=== PATIENT | female | born 1990 | race Caucasian/White ===

== ENCOUNTER 2020-09-11 11:45 | Emergency (ER) | payer BC, OTHER ==
[~2020-09-11] VITALS: Ht 154.9 cm; Wt 75.1 kg
[~2020-09-11 11:45] MED LIST: DOCU-109 PO; FERR325T14 PO; IBUP-1007 PO; PREN1TAB51 PO
[2020-09-11 12:01] VITALS: BP 124/74
--- NOTE | 2020-09-11 12:58 | PHYS DOC ---
Past Medical History Past Surgical History: No Surgical History Smoking Status: Current Every Day Smoker Additional Information: 0.25 PPD Alcohol Use: None General Adult EDM: Chief Complaint: VAGINAL BLEEDING HPI: HPI: Patient is a 29 year old female who presents with she was at work and felt something wet in her underwear and she went to check and she had a large blood clot she had blood through her pants. She states that she then put a panty liner on and when she got here to be in the cup she again started bleeding. She states is like a normal period type bleeding for her. She states she has slight cramping in her low mid abdomen that is a 2 out of 10. This is her third baby for her. She states she is had no complications in the past. She states she is approximately 12 weeks along and she has not seen a OB. She states she has been trying to find an OB doctor that we will see her in person and not Skype. She states her only other history is smoking, seasonal allergies and 2 uncomplicated pregnancies with vaginal deliveries. Patient denies any surgeries. Review of Systems: Review of Systems: Constitutional: Denies fever or chills. [] Eyes: Denies change in visual acuity. [] HENT: Denies nasal congestion or sore throat. [] Respiratory: Denies cough or shortness of breath. [] Cardiovascular: Denies chest pain or edema. [] GI: + Cramping abdominal pain, denies nausea, vomiting, bloody stools or diarrhea. [] : Denies dysuria. + Vaginal bleeding [] Musculoskeletal: Denies back pain or joint pain. [] Integument: Denies rash. [] Neurologic: Denies headache, focal weakness or sensory changes. [] Endocrine: Denies polyuria or polydipsia. [] Lymphatic: Denies swollen glands. [] Psychiatric: Denies depression or anxiety. [] Heart Score: C/O Chest Pain: No Risk Factors: Risk Factors: DM, Current or recent (<one month) smoker, HTN, HLP, family history of CAD, obesity. Risk Scores: Score 0 - 3: 2.5% MACE over next 6 weeks - Discharge Home Score 4 - 6: 20.3% MACE over next 6 weeks - Admit for Clinical Observation Score 7 - 10: 72.7% MACE over next 6 weeks - Early Invasive Strategies Allergies: Allergies: Allergies Coded Allergies Type Severity Reaction Last Updated Verified Penicillins Allergy Severe Hives 03/24/13 Yes Physical Exam: PE: Constitutional: Well developed, well nourished, no acute distress, non-toxic appearance. [] HENT: Normocephalic, atraumatic, bilateral external ears normal, oropharynx moist, no oral exudates, nose normal. [] Eyes: PERRLA, EOMI, conjunctiva normal, no discharge. [] Neck: Normal range of motion, no tenderness, supple, no stridor. [] Cardiovascular:Heart rate regular rhythm, no murmur [] Lungs & Thorax: Bilateral breath sounds clear to auscultation [] Abdomen: Bowel sounds normal, soft, low mid pressure tenderness, no masses, no pulsatile masses. [] Skin: Warm, dry, no erythema, no rash. [] Back: No tenderness, no CVA tenderness. [] Extremities: No tenderness, no cyanosis, no clubbing, ROM intact, no edema. [] Neurologic: Alert and oriented X 3, normal motor function, normal sensory function, no focal deficits noted. [] Psychologic: Affect normal, judgement normal, mood normal. [] Current Patient Data: Labs: Laboratory Tests Test 09/11/20 12:08 POC Urine HCG, Qualitative Hcg positive (Negative) Vital Signs: Vital Signs Date Time Temp Pulse Resp B/P (MAP) Pulse Ox O2 Delivery O2 Flow Rate FiO2 09/11/20 12:01 98.9 77 17 124/74 (82) 100 Room Air 98.9 EKG: EKG: [] Radiology/Procedures: Radiology/Procedures: [] Impression: [facility] [address] [place], [place] [id number] IMAGING REPORT Signed PATIENT: MARY PATTON ACCOUNT: [id number] : 1990 LOCATION: ER AGE: 29 SEX: F EXAM STATUS: REG ER ORD. PHYSICIAN: RUTH AGUIRRE APRN REASON: 12 weeks and bleeding/TECH NOTIFIED PROCEDURE: OB < 14 WKS US OB <14 WKS +TV 09/11/2020 2:04 PM INDICATION: 12 weeks and bleeding COMPARISON: None available. TECHNIQUE: Sonographic evaluation of the pelvis was performed for evaluation. FINDINGS: Uterus measures 15.4 x 10.7 x 8.5 cm. Cervical length measures 5 cm. There is placenta previa. No subchorionic hemorrhage or placental abruption identified. Amniotic fluid is normal. Gestational sac is visualized with crown-rump length measuring 5.5 cm compatible gestational age of 12 weeks 1 day. heart tones measure 158 bpm. Estimated sonographic EDC 03/25/2021. Ovaries are not visualized. No significant pelvic free fluid. Urinary bladder is within normal limits given degree of distention. IMPRESSION: Single viable intrauterine gestation is identified with heart tones measuring 158 bpm with estimated gestational age of 12 weeks 1 day. Placenta previa is visualized. Attention on anatomy scan is recommended to assess for interval change. Electronically signed by: Benitez Paul MD (09/11/2020 2:51 PM) [id number] DICTATED and SIGNED BY: BENITEZ PAUL MD DATE: 09/11/20 [id number] 0 Course & Med Decision Making: Course & Med Decision Making Pertinent Labs and Imaging studies reviewed. (See chart for details) See HPI. Alert and oriented x4. Ambulatory with steady gait. Skin pink warm and dry. Vital signs within normal limits. She is afebrile. She denies any urinary symptoms or concern for STDs. Abdomen is soft and nontender but there is pressure with palpation to the low mid abdomen. Pelvic Exam: Line Tender present Abdomen: Nontender External Genitalia: Normal Skin Speculum: Normal vaginal mucosa, bloody cervical discharge Bimanual: No adnexal masses or tenderness, No CMT [] Dragon Disclaimer: Najma Disclaimer: This electronic medical record was generated, in whole or in part, using a voice recognition dictation system. Departure Departure Impression: Primary Impression: Vaginal bleeding in patient after first trimester with placenta previa Disposition: 01 HOME / SELF CARE / HOMELESS Condition: STABLE Referrals: FIONA HAYNES MD (PCP) GUZMAN PORTILLO MD Patient Instructions: - Placenta Previa Additional Instructions: Follow-up with an OB doctor as soon as possible. If you start having severe pain and a large amount of bleeding and going through more than 1 pad an hour you need to return to the emergency room. Drink plenty of fluids. RUTH AGUIRRE FOUNTAIN OPERATOR Sep 11, 2020 12:58
[2020-09-11 13:12] LABS: BILIRUBIN,URINE NEGATIVE (NEG); CLARITY,URINE CLEAR; COLOR,URINE YELLOW; NITRITE,URINE NEGATIVE (NEG); PROTEIN,URINE NEGATIVE (NEG-TRACE); UROBILINOGEN,URINE 0.2 mg/dL (0.2 mg/dL)
[2020-09-11 13:24] LABS: BACTERIA,URINE FEW /HPF (0-FEW); WBC,URINE 0 /HPF (0-4)
[2020-09-11 13:35] LABS: BASO % 0 % (0-3); EOS # 0.3 x10^3/uL (0.0-0.7); EOS % 4 % (0-3); HEMATOCRIT 36.7 % (36.0-47.0); LYMPH # 1.7 x10^3/uL (1.0-4.8); LYMPH % 22 % (24-48); MEAN CORPUSCULAR HEMOGLOBIN 32 pg (25-35); MEAN CORPUSCULAR HGB CONC 35 g/dL (31-37); MEAN CORPUSCULAR VOLUME 91 fL (79-100); MONO # 0.5 x10^3/uL (0.0-1.1); MONO % 6 % (0-9); NEUT # 5.3 x10^3/uL (1.8-7.7); NEUT % 68 % (31-73); PLATELET COUNT 250 x10^3/uL (140-400); RED BLOOD COUNT 4.05 x10^6/uL (3.50-5.40); RED CELL DISTRIBUTION WIDTH 12.8 % (11.5-14.5); WHITE BLOOD COUNT 7.8 x10^3/uL (4.0-11.0)
[2020-09-11 13:44] LABS: CALCIUM 8.6 mg/dL (8.5-10.1); CREATININE 0.6 mg/dL (0.6-1.0); GFR 118.2; POTASSIUM 3.5 mmol/L (3.5-5.1)
[2020-09-11 13:50] LABS: ALBUMIN/GLOBULIN RATIO 0.9 (1.0-1.7); TOTAL BILIRUBIN 0.3 mg/dL (0.2-1.0); TOTAL PROTEIN 6.4 g/dL (6.4-8.2)
--- NOTE | 2020-09-11 14:53 | RAD ---
US OB <14 WKS +TV 09/11/2020 2:04 PM INDICATION: 12 weeks and bleeding COMPARISON: None available. TECHNIQUE: Sonographic evaluation of the pelvis was performed for evaluation. FINDINGS: Uterus measures 15.4 x 10.7 x 8.5 cm. Cervical length measures 5 cm. There is placenta previa. No sub chorionic hemorrhage or placental abruption identified. Amniotic fluid is normal. Gestational sac is visualized with crown-rump length measuring 5.5 cm compatible gestational age of 12 weeks 1 day. Feta l heart tones measure 158 bpm. Estimated sonographic EDC 03/25/2021. Ovaries are not visualized. No significant pelvic free fluid. Urinary bladder is within normal limits given degree of distention. IMPRESSION: Single viable intrauterine gestation is identified with heart tones measuring 158 bpm with jm mated gestational age of 12 weeks 1 day. Placenta previa is visualized. Attention on anatomy scan is recommended to assess for interval change . Electronically signed by: Samantha Jenkins MD (09/11/2020 2:51 PM) [id number]
[2020-09-13 18:12] LABS: GC PROBE Negative (Negative)
== END 2020-09-11 15:20 | disposition home or self-care (01) ==
LOC: ER 11:45
DX: O44.11 Complete placenta previa with hemorrhage, first trimester (principal); O99.331 Smoking (tobacco) complicating pregnancy, first trimester; Z3A.12 12 weeks gestation of pregnancy
CPT/HCPCS: 36415; 76801; 80053; 81001; 81025; 84702; 85025; 86850; 86900; 86901; 87491; 87591; 99284; Q0111

== ENCOUNTER 2020-10-04 17:57 | Emergency (ER) | payer BC ==
[~2020-10-04] VITALS: Ht 154.9 cm; Wt 77.0 kg
--- NOTE | 2020-10-04 20:40 | PHYS DOC ---
Past Medical History Past Surgical History: No Surgical History Smoking Status: Current Every Day Smoker Alcohol Use: None General Adult EDM: Chief Complaint: VAGINAL BLEEDING HPI: HPI: Patient is a 30 year old female at approximately 15 weeks gestational age who presents with vaginal bleeding. Was seen on 09/11 for the same complaint and had an ultrasound showing an intrauterine of 12w1d gestational age and placenta previa. She has had a follow-up with Dr. Johnson of our obstetrics group since then. Yesterday started having bleeding again as well as lower abdominal cramping. States that the bleeding is mixed blood clots, dark blood, and bright red blood. She is soaking through more than 2 pads an hour. Review of Systems: Review of Systems: Constitutional: Denies fever or chills. [] Eyes: Denies change in visual acuity. [] HENT: Denies nasal congestion or sore throat. [] Respiratory: Denies cough or shortness of breath. [] Cardiovascular: Denies chest pain or edema. [] GI: No nausea, vomiting, bloody stools or diarrhea. [] : + Vaginal bleeding, uterine cramping. [] Musculoskeletal: Denies back pain or joint pain. [] Integument: Denies rash. [] Neurologic: Denies headache, focal weakness or sensory changes. [] Endocrine: Denies polyuria or polydipsia. [] Lymphatic: Denies swollen glands. [] Psychiatric: Denies depression or anxiety. [] Heart Score: C/O Chest Pain: No Risk Factors: Risk Factors: DM, Current or recent (<one month) smoker, HTN, HLP, family history of CAD, obesity. Risk Scores: Score 0 - 3: 2.5% MACE over next 6 weeks - Discharge Home Score 4 - 6: 20.3% MACE over next 6 weeks - Admit for Clinical Observation Score 7 - 10: 72.7% MACE over next 6 weeks - Early Invasive Strategies Allergies: Allergies: Allergies Coded Allergies Type Severity Reaction Last Updated Verified Penicillins Allergy Severe Hives 03/24/13 Yes Physical Exam: PE: Constitutional: Well developed, well nourished, no acute distress, non-toxic appearance. [] HENT: Normocephalic, atraumatic, bilateral external ears normal, oropharynx moist, no oral exudates, nose normal. [] Eyes: PERRLA, EOMI, conjunctiva normal, no discharge. [] Neck: Normal range of motion, no tenderness, supple, no stridor. [] Cardiovascular:Heart rate regular rhythm, no murmur [] Lungs & Thorax: Bilateral breath sounds clear to auscultation [] Abdomen: mild tenderness over gravid uterus : multiple large blood clots passed on speculum exam, digital exam not done due to known placenta previa, but cervix visually appeared closed. [] Skin: Warm, dry, no erythema, no rash. [] Back: No tenderness, no CVA tenderness. [] Extremities: No tenderness, no cyanosis, no clubbing, ROM intact, no edema. [] Neurologic: Alert and oriented X 3, normal motor function, normal sensory function, no focal deficits noted. [] Psychologic: Affect normal, judgement normal, mood normal. [] Current Patient Data: Labs: Laboratory Tests Test 10/04/20 20:34 POC Urine HCG, Qualitative Hcg positive (Negative) Vital Signs: Vital Signs Date Time Temp Pulse Resp B/P (MAP) Pulse Ox O2 Delivery O2 Flow Rate FiO2 10/04/20 20:03 98.7 87 119/66 (83) 96 98.7 10/04/20 18:20 20 Room Air EKG: EKG: [] Radiology/Procedures: Radiology/Procedures: OB US[] Impression: [facility] [address] [place] [address] IMAGING REPORT Signed PATIENT: MARY PATTON ACCOUNT: [id number] : 1990 LOCATION: ER AGE: 30 SEX: F EXAM STATUS: REG ER ORD. PHYSICIAN: LENCHO FAIRBANKS MD REASON: vaginal bleeding, hx placenta previa PROCEDURE: OB LIMITED OB ultrasound limited HISTORY: and vaginal bleeding Sonographic examination appearance was performed by transabdominal technique. Multiple static images were obtained. COMPARISON: September 12, 2011 The uterus measures 13 cm x 8.6 cm x 7.0 cm. There is no gestational sac seen. The endometrium appears somewhat thickened and complex. The ovaries appear normal normal blood flow. Right ovary measures 2.9 x 2.0 x 1.9 cm per the left ovary measures 2.7 x 2.2 x 1.8 cm. IMPRESSION: Thickened heterogeneous endometrium. No evidence of . Findings suggest complete miscarriage. Electronically signed by: Pricilla Wilson III, MD (10/04/2020 9:40 PM) [facility] DICTATED and SIGNED BY: PRICILLA WILSON III, MD DATE: 10/04/20 [id number] 0 Course & Med Decision Making: Course & Med Decision Making Pertinent Labs and Imaging studies reviewed. (See chart for details) Patient a 30-year-old female G3, P2 at approximately 15 weeks gestational age with history of placenta previa documented on 09/11 transvaginal ultrasound who presents with vaginal bleeding and lower abdominal cramping. On arrival is hemodynamically stable. We will check CBC for signs of anemia, type/screen to determine Rh status, and perform pelvic examination to determine the amount of bleeding present, and OB ultrasound to check previa and for well-being. 2041 Pelvic showed many large clots (no obvious parts) and some continued bleeding. Cervix visually appeared closed, but digital exam was not done due to placenta previa history. Beta Hcg is 844 from 82,951 on 09/11 and US showed an empty uterus -- all consistent with completed miscarriage. Blood type: B+. No need for rhogam. Hgb 13.7 as compared to 13.0 on 09/11. Vitals remain stable and her bleeding has slowed significantly. She has an appt with Dr. Johnson in the next two weeks that I encouraged her to keep. If she has return brisk bleeding she will return to the ED for reevaluation, otherwise will follow up with Dr. Johnson. [address] Disclaimer: Najma Disclaimer: This electronic medical record was generated, in whole or in part, using a voice recognition dictation system. Departure Departure Impression: Primary Impression: Complete miscarriage Disposition: HOME / SELF CARE / HOMELESS Condition: STABLE Referrals: EGOVANI BERNARDO MD (PCP) GUZMAN JOHNSON MD Please keep your follow-up appoint with Dr. Johnson. If you do have continued bleeding please call their office for evaluation. Patient Instructions: Miscarriage Additional Instructions: It appears you have had a miscarriage. We are very slow to get you this news. Please follow-up with your DATA PROCESSING MECHANIC, Dr. Johnson as scheduled. If you have ongoing bleeding please call his office to see if you can move up this appointment. If you have return of severe bleeding, fever/chills, lower abdominal pain, or other new/concerning symptoms please return to the emergency department for reevaluation. LENCHO FAIRBANKS MD Oct 04, 2020 20:40
[2020-10-04 20:45] LABS: BILIRUBIN,URINE NEGATIVE (NEG); CLARITY,URINE CLEAR; COLOR,URINE YELLOW; NITRITE,URINE NEGATIVE (NEG); PH,URINE 6.5 (<5.0-8.0); PROTEIN,URINE NEGATIVE (NEG-TRACE); UROBILINOGEN,URINE 0.2 mg/dL (0.2 mg/dL)
[2020-10-04 20:50] LABS: BACTERIA,URINE FEW /HPF (0-FEW); WBC,URINE OCC /HPF (0-4)
[2020-10-04] MEDS ORDERED: ACETAMINOPHEN 500 MG TABLET PO ONE (21:15)
[2020-10-04 21:39] LABS: BASO # 0.1 x10^3/uL (0.0-0.2); BASO % 1 % (0-3); EOS # 0.4 x10^3/uL (0.0-0.7); EOS % 4 % (0-3); HEMATOCRIT 39.8 % (36.0-47.0); HEMOGLOBIN 13.7 g/dL (12.0-15.5); LYMPH # 2.3 x10^3/uL (1.0-4.8); LYMPH % 25 % (24-48); MEAN CORPUSCULAR HEMOGLOBIN 32 pg (25-35); MEAN CORPUSCULAR HGB CONC 34 g/dL (31-37); MEAN CORPUSCULAR VOLUME 92 fL (79-100); MONO # 0.5 x10^3/uL (0.0-1.1); MONO % 6 % (0-9); NEUT # 6.1 x10^3/uL (1.8-7.7); NEUT % 65 % (31-73); PLATELET COUNT 271 x10^3/uL (140-400); RED BLOOD COUNT 4.31 x10^6/uL (3.50-5.40); RED CELL DISTRIBUTION WIDTH 13.2 % (11.5-14.5); WHITE BLOOD COUNT 9.3 x10^3/uL (4.0-11.0)
--- NOTE | 2020-10-04 21:42 | RAD ---
OB ultrasound limited HISTORY: and vaginal bleeding Sonographic examination appearance was performed by transabdominal technique. Multiple static images were obtained. COMPARISON: September 12, 2011 The uterus measures 13 cm x 8.6 cm x 7.0 cm. There is no gestational sac seen. The endometrium appear s somewhat thickened and complex. The ovaries appear normal normal blood flow. Right ovary measures 2.9 x 2.0 x 1.9 cm per the left ova ry measures 2.7 x 2.2 x 1.8 cm. IMPRESSION: Thickened heterogeneous endometrium. No evidence of . Findings suggest complete miscarriage. Electronically signed by: Wyatt Sood III, MD (10/04/2020 9:40 PM) [facility]
[2020-10-04 21:55] LABS: CALCIUM 8.6 mg/dL (8.5-10.1); CREATININE 0.8 mg/dL (0.6-1.0); GFR 84.2; POTASSIUM 3.5 mmol/L (3.5-5.1)
[2020-10-04 22:32] VITALS: BP 113/68
[2020-10-08] MEDS ORDERED: OXYC1TAB15 PO (12:42)
[2020-10-08] MEDS ORDERED: IBUP-1060 PO (12:42)
[2020-10-08] MEDS ORDERED: FERR325T14 PO (12:42)
== END 2020-10-04 22:33 | disposition home or self-care (01) ==
LOC: ER 17:57
DX: O03.9 Complete or unspecified spontaneous abortion without complication (principal); F17.200 Nicotine dependence, unspecified, uncomplicated; Z3A.15 15 weeks gestation of pregnancy; Z88.0 Allergy status to penicillin
CPT/HCPCS: 36415; 76815; 80048; 81001; 81025; 84702; 85025; 99284-25

== ENCOUNTER 2020-10-08 11:49 | Day surgery (SDC) | payer BC ==
--- NOTE | 2020-10-08 11:51 | PDOC1 ---
OPHTHALMIC MEDICAL TECHNICIAN H&P Date of Admission: Date of Admission: History of Present Illness: 30y who presented to the ER on 10/04/20 with VB. The pt had viable documented 09/13/20. She would have been ~15.3 wks. In the ER in her bleeding slowed down significantly. But when she made an appt with Dr. Crouch the pt was advised to call if the bleeding persisted. The following day (today), the pt call the office with increased bleeding. In the ER her u/s revealed the following: Thickened heterogeneous endometrium. No evidence of . Findings suggest complete miscarriage. Her quant at the time was 844. PMH: Asthma PSH: Denies Meds: Albuterol, Claritin, Fe All: PCN OBHx: TSVD x 2 Collating Machine Operator: LMP 06/2020 SH: 1/4 PPD, no EtOH FH: allergies, arthritis, HTN, migraines, heart failure. Allergies: Coded Allergies: Penicillins (Verified Allergy, Severe, Hives, 03/24/13) Physical Exam: PE: GENERAL: No apparent distress. Alert and oriented. HEENT: Head normocephalic, atraumatic. NECK: Supple LUNGS: Clear to auscultation. HEART: RRR, S1, S2 present, pulses intact ABDOMEN: Soft, positive bowel sounds. EXTREMITIES: No cyanosis or edema. NEUROLOGIC: Normal speech, normal tone PSYCHIATRIC: Normal affect, normal mood. SKIN: No ulceration. Assessment & Plan: A/P 30y with recent SAB 1.) VB continued bleeding, likely retained POC, will place on schedule for D&C 2.) SAB on 10/04/20 3.) H/o placenta previa during the - heavy bleeding episode 09/11/20 4.) Asthma 5.) Tob use - discussed cessation 6.) PCN allergy GUZMAN PORTILLO MD Oct 08, 2020 11:51
[2020-10-08] MEDS ORDERED: PROCHLORPERAZINE 10 MG/2 ML VIAL. IVP PRN (12:00)
[2020-10-08] MEDS ORDERED: IV RINGERS,LACTATED 1000ML 1,000 ML IV SCH (12:00)
[2020-10-08] MEDS ORDERED: DOXYCYCLINE HYCLATE 100 MG in IV DEXTROSE 5% 100ML 100 ML IV SCH (12:00)
[2020-10-08] MEDS ORDERED: ceFAZolin 2GM PREMIX 2 GM/50 ML BAG IV ONE (12:00)
[2020-10-08] MEDS ORDERED: HYDROmorphone 2 MG/ML VIAL IVP PRN (12:00)
[2020-10-08] MEDS ORDERED: fentaNYL PF VIAL 100 MCG/2 ML VIAL IVP PRN ×2 (12:00)
[2020-10-08] MEDS ORDERED: MORPHINE SULFATE 2 MG/ML INJ. IVP PRN (12:00)
[2020-10-08 12:17] LABS: BASO % 0 % (0-3); EOS # 0.2 x10^3/uL (0.0-0.7); EOS % 2 % (0-3); HEMATOCRIT 28.2 % (36.0-47.0); LYMPH # 1.6 x10^3/uL (1.0-4.8); LYMPH % 15 % (24-48); MEAN CORPUSCULAR HEMOGLOBIN 32 pg (25-35); MEAN CORPUSCULAR HGB CONC 35 g/dL (31-37); MEAN CORPUSCULAR VOLUME 92 fL (79-100); MONO # 0.6 x10^3/uL (0.0-1.1); MONO % 5 % (0-9); NEUT # 8.1 x10^3/uL (1.8-7.7); NEUT % 77 % (31-73); PLATELET COUNT 250 x10^3/uL (140-400); RED BLOOD COUNT 3.08 x10^6/uL (3.50-5.40); WHITE BLOOD COUNT 10.5 x10^3/uL (4.0-11.0)
[2020-10-08] MEDS ORDERED: fentaNYL PF VIAL 100 MCG/2 ML VIAL ONE (12:32)
[2020-10-08] MEDS ORDERED: PROCHLORPERAZINE 10 MG/2 ML VIAL. ONE (12:32)
[2020-10-08] MEDS ORDERED: OXYC1TAB15 PO (12:42)
[2020-10-08] MEDS ORDERED: FERR325T14 PO (12:42)
[2020-10-08] MEDS ORDERED: IBUP-1060 PO (12:42)
--- NOTE | 2020-10-08 13:24 | PDOC4 ---
OPERATIVE NOTE: PreOp Dx: 1.) VB, 2.) SAB on 10/04/20, 3.) H/o placenta previa during the , 4.) Asthma, 5.) Tob use, 6.) PCN allergy PostOp Dx: same Procedure: Suction D&C Surgeon: Stacey Portillo Anesthesia: LMA EBL: 100 cc Fluids: 2400 cc UOP: 100 cc Specimen: POC Complications: None GUZMAN PORTILLO MD Oct 08, 2020 13:24
[2020-10-08] MEDS ORDERED: oxyCODONE/APAP 5/325 1 TAB TABLET PO ONE (13:30)
[2020-10-08] MEDS ORDERED: ALBUMIN HUMAN 5% 500 ML IV ONE (13:45)
--- NOTE | 2020-10-08 13:52 | OP ---
DATE OF SURGERY: 10/08/2020 PREOPERATIVE DIAGNOSES: 1. Vaginal bleeding. 2. Spontaneous on 10/04/2020 with suspected retained products of conception. 3. History of placenta previa with this . 4. Asthma. 5. Tobacco use. 6. PENICILLIN ALLERGY. POSTOPERATIVE DIAGNOSES: 1. Vaginal bleeding. 2. Spontaneous on 10/04/2020 with suspected retained products of conception. 3. History of placenta previa with this . 4. Asthma. 5. Tobacco use. 6. PENICILLIN ALLERGY. PROCEDURE: Suction D and C. SURGEON: Tyler Johnson MD ANESTHESIA: LMA. ESTIMATED BLOOD LOSS: 100 mL FLUIDS: 2400 mL URINE OUTPUT: 100 mL SPECIMENS: Retained products of conception. COMPLICATIONS: None. DESCRIPTION OF PROCEDURE: The patient was taken to the operating room where LMA was placed without difficulty. The patient was prepped and draped in normal sterile fashion. A posterior weighted speculum was placed in the patient's vagina and a right angle retractor was used to visualize the anterior lip of the cervix. A single tooth tenaculum was then placed on the anterior lip of the cervix. At the cervical os, there was a large amount of products of conception. This was then grasped with a ring forceps and removed. After this was removed, the cervix was sufficiently dilated for 12 cm suction curette to be placed. After sounding the uterus to 9 cm, a curette was then advanced to the fundus and suction was then activated. The curette was rotated until all products of conception were cleared. This was accomplished after a couple of passes. At that point, sharp curetting was performed. Minimal return came and gritty texture was felt in all 4 quadrants. At that point, the suction curette was passed one more time with minimal return of tissue or blood. At that point, the procedure was terminated. The tenaculum was then removed with minimal bleeding at the tenaculum site. Good hemostasis was noted. The patient was given 200 mg of doxycycline prior to the procedure. DULCE DR: Gregg TID: [id number]
[2020-10-08 14:08] VITALS: BP 102/45
--- NOTE | 2020-10-12 09:08 | PATHOLOGY ---
[facility] Accession Number: [id number] . 01 Material submitted: . product of conception - RETAINED PRODUCTS OF CONCEPTION . 01 Clinical history: . MISCARRIAGE SUCTION D/C . 02 Diagnosis: Uterine contents, suction D and C: - Products of conception, comprised of a segment of placental disc with attached umbilical cord and membranes (weight 133 grams) showing focal villous necrosis and degenerative changes, intervillous hemorrhage, and intervillous acute inflammation, and separate segments of immature chorionic villi showing degenerative changes and decidual tissue showing focal necrosis, acute inflammation, and hemorrhage. (JPM:chuck; 10/11/2020) MBR 10/12/2020 0826 Local . 02 Electronically signed: . Demetrius Pratt MD, Pathologist NPI- [id number] . 01 Gross description: . The specimen is received in formalin, labeled "Bacon, Sirena, retained products of conception" and consists of multiple hemorrhagic soft irregular tissues aggregating 9.4 x 8.0 x 1.9 cm without identifiable chorionic villi, gestational sac remnants, discrete parts, or hydropic villi. . Also received free floating in the same container is a 133 g placental disc (7.7 x 7.5 x 4.0 cm) with an at least one vessel, cerrato-pink umbilical cord (2.3 cm in length by 0.2 cm diameter) which inserts eccentrically, 2.2 cm from the nearest placental edge. There are no true knots, velamentous insertion or tissue at the end of the cord. The completeness of the placenta is unable to be determined. The surface is blue-purple, dusky and smooth without identifiable arborizing vasculature. The maternal surface is red-brown, smooth and disrupted (90%) with abundant adherent blood clot. Sectioning reveals diffusely hemorrhagic, spongy cut surfaces with prominent and hemorrhagic vasculature. The minimal, marginally inserted membranes are pink, cerrato and slightly thickened. College And Career Counselor sections are submitted in A1-A10 (with the umbilical cord in A5 to be sectioned at embedding) as follows: A1-A3: Hemorrhagic soft irregular tissue, represented A4: membranes, represented A5: Umbilical cord, entirely submitted, to be sectioned at embedding and to be embedded on end A6-A9: Full-thickness sections of disc, represented A10: Blood clot and tissue adherent to maternal surface, represented (UMKUMIUT; 10/08/2020) DKA/DKA 10/11/2020 1703 Local . 02 Pathologist provided ICD-10: O03.9 . 02 CPT . 419671 Specimen Comment: A courtesy copy of this report has been sent to [phone], [phone] Specimen Comment: [id number] Specimen Comment: Report sent to DR. PORTILLO / DR BERNARDO Performed at: 01 [facility] [address], [place], [place] [id number] MD Anton Payne MD Phone: [phone] Performed at: 02 [facility] [address] [place], [place] [id number] MD Demetrius Pratt MD Phone: [phone]
== END 2020-10-08 14:34 | disposition home or self-care (01) ==
LOC: SURG 11:49
PROVIDERS: ATTEND Obstetrics & Gynecology
DX: N93.8 Other specified abnormal uterine and vaginal bleeding (principal); O02.1 Missed abortion; J45.909 Unspecified asthma, uncomplicated; F17.210 Nicotine dependence, cigarettes, uncomplicated; Z79.899 Other long term (current) drug therapy; Z98.890 Other specified postprocedural states; Z88.0 Allergy status to penicillin; Z3A.15 15 weeks gestation of pregnancy; Z20.822 Contact with and (suspected) exposure to COVID-19
CPT/HCPCS: 36415; 59821; 85025; 86850; 86900; 86901; 87426; A4930; J0780; J3490; J7060; U0003; U0005; 88305; A4223; A4322; J0690; J3010

== ENCOUNTER → 2021-02-28 | Outpatient (CLI) | payer BC ==
[~2021-02-28] MED LIST changes: +IBUP-1060 PO; +OXYC1TAB15 PO
--- NOTE | 2021-02-28 17:25 | RAD ---
Study: US OB <14 WKS +TV DATE: 02/28/2021 3:53 PM INDICATION: Uncertain dates. COMPARISON: 10/04/2020 TECHNIQUE: Transabdominal ultrasonography of the pelvis was performed. Color Doppler and duplex were utilized as appropriate. FINDINGS: The uterus measures 11 x 9 x 6 cm. The right ovary measures 3.2 x 1.5 x 1.6 in meters. The left ovary was not able to be visualized on account of bowel gas. Normally marginated intrauterine gestational sac containing a live pole and yolk sac. [place]-rum p length measured at 1.26 cm corresponding to an estimated gestational age of 7 weeks 3 days +/- 5 da ys. heart rate of 162 bpm. No subchorionic hemorrhage is identified. Unremarkable uterine paren chyma. Normal Doppler flow is maintained to the right ovary. No complex cyst or mass at the right adnexa. No free pelvic fluid. IMPRESSION: 1. Single live intrauterine with an estimated gestational age by ultrasound of 7 weeks 3 d ays +/- 5 days which would correspond to a delivery date of 10/14/2021. No subchorionic hemorrhage or o ther abnormality is seen that would warrant short-term follow-up. 2. Unremarkable right ovary. The left ovary was not able to be visualized on account of bowel gas. Electronically signed by: MURPHY GRIMM MD (02/28/2021 5:23 PM) [facility]
== END ==
LOC: US 15:49
PROVIDERS: ATTEND Obstetrics & Gynecology
DX: O09.71 Supervision of high risk pregnancy due to social problems, first trimester (principal); Z3A.01 Less than 8 weeks gestation of pregnancy
CPT/HCPCS: 76801

== ENCOUNTER → 2021-05-23 | Outpatient (CLI) | payer BC ==
--- NOTE | 2021-05-24 08:26 | RAD ---
Study: US OB >14 WEEKS Clinical Indication: Supervision abnormal . 20 week anatomy screening. Comparison: OB ultrasound 02/28/2021 Technique: Multiple grayscale images, color Doppler, and M-mode images of the uterus are obtained. Findings: Single intrauterine gestation in breech presentation. The placenta is anterior in location without ev idence of placenta previa. The amount of amniotic fluid appears appropriate. The cervical length is 8 .0 cm. Biometrical data: BPD = 4.89 cm for 20 weeks 6 days. HC = 18.76 cm for 21 weeks 0 days. AC = 15.96 cm for 21 weeks 1 days. FL = 3.37 cm for 20 weeks 4 days. CI ratio = 79.2. HC/AC ratio = 1.18. FL/HC ratio = 18.0. FL/AC ratio = 21.1. Overall, the estimated sonographic gestational age is 20 weeks 6 days for an estimated date of delive ry of 10/04/2021. The clinical estimated date of delivery is 09/20/2021. Estimated weight is 383 +/- 57 grams. A 4 chamber heart is identified with positive cardiac activity. The estimated heart rate is 152 beats per minute. Bilateral upper and lower extremities are identified. There is a three-vessel cord with cord insertion visualized. stomach and urinary bladder are identified. Both kidneys are seen. The spine and brain are unremarkable. No gross anatomic abnormalities are identified. Impression: 1. Single live intrauterine gestation with estimated sonographic gestational age of 20 weeks 6 days corresponding to an estimated delivery date of 10/04/2021. Clinically estimated delivery date of 022. weight estimate of 383 +/- 57 grams which is at the 14th percentile. There is a 14 day dis crepancy between gestational age based on last menstrual period biometric dating. Biometric dating is more concordant with first trimester ultrasound EDC of 10/14/2021. Electronically signed by: Sony Cat MD (05/24/2021 8:23 AM) [id number]
== END ==
LOC: US 10:51
PROVIDERS: ATTEND Obstetrics & Gynecology
DX: Z34.92 Encounter for supervision of normal pregnancy, unspecified, second trimester (principal); Z3A.20 20 weeks gestation of pregnancy
CPT/HCPCS: 76805